=== PATIENT | male | born 1985 | race Caucasian/White ===

== ENCOUNTER 2025-02-19 13:00 | Outpatient (RCR) | payer BC, SELFPAY | END 2025-02-19 23:59 | disposition home or self-care (01) | LOC: PT 13:00 | PROVIDERS: Visit Provider Orthopaedic Surgery Sports Medicine | DX: S83.512A Sprain of anterior cruciate ligament of left knee, initial encounter (principal) | CPT/HCPCS: 97014; 97016; 97110; 97112; 97116; 97140; 97163; 97530; G0283 ==

== ENCOUNTER 2025-03-19 14:00 | Outpatient (RCR) | payer BC, SELFPAY | END 2025-03-19 23:59 | disposition home or self-care (01) | LOC: PT 14:00 | PROVIDERS: Visit Provider Orthopaedic Surgery Sports Medicine | DX: S83.512A Sprain of anterior cruciate ligament of left knee, initial encounter (principal); X58.XXXA Exposure to other specified factors, initial encounter | CPT/HCPCS: 97014; 97016; 97110; 97112; 97140; 97164; 97530; G0283 ==

== ENCOUNTER 2025-04-21 10:00 | Outpatient (RCR) | payer BC, SELFPAY | END 2025-04-21 23:59 | disposition home or self-care (01) | LOC: PT 10:00 | PROVIDERS: Visit Provider Orthopaedic Surgery Sports Medicine | DX: S83.512A Sprain of anterior cruciate ligament of left knee, initial encounter (principal) | CPT/HCPCS: 97110; 97164; 97530 ==

== ENCOUNTER 2025-05-12 10:00 | Outpatient (RCR) | payer BC, SELFPAY | END 2025-05-12 23:59 | disposition home or self-care (01) | LOC: PT 10:00 | PROVIDERS: Visit Provider Orthopaedic Surgery Sports Medicine | DX: S83.512A Sprain of anterior cruciate ligament of left knee, initial encounter (principal) | CPT/HCPCS: 97110; 97530 ==

== ENCOUNTER 2025-05-26 11:01 | Outpatient (RCR) | payer BC, SELFPAY | END 2025-05-26 23:59 | disposition home or self-care (01) | LOC: PT 11:01 | PROVIDERS: Visit Provider Orthopaedic Surgery Sports Medicine | DX: S83.512A Sprain of anterior cruciate ligament of left knee, initial encounter (principal) | CPT/HCPCS: 97110; 97164; 97530 ==